=== PATIENT | female | born 1990 | race Caucasian/White ===

== ENCOUNTER 2021-06-01 10:21 | Inpatient (IN) | payer OTHER, SELFPAY ==
[~2021-06-01] VITALS: Ht 157.5 cm; Wt 93.4 kg
[2021-06-01] MEDS ORDERED: OXYTOCIN 10 UNITS/ML VIAL IM SCH (10:50)
[2021-06-01] MEDS ORDERED: PROMETHAZINE 25 MG/ML VIAL IVP PRN (10:50)
[2021-06-01] MEDS ORDERED: CARBOPROST 250 MCG/ML AMP IM PRN (10:50)
[2021-06-01] MEDS ORDERED: METHYLERGONOVINE 0.2 MG/ML AMP IM PRN (10:50)
[2021-06-01] MEDS ORDERED: LACTATED RINGERS 1,000 ML IV SCH (10:50)
[2021-06-01] MEDS ORDERED: NALBUPHINE 10 MG/ML AMP IVP PRN (10:50)
[2021-06-01] MEDS ORDERED: LACTATED RINGERS 500 ML IV ONE (10:50)
[2021-06-01] MEDS ORDERED: LACTATED RINGERS 500 ML IV SCH (11:07)
[2021-06-01 11:23] LABS: BASOPHILS # (AUTO) 0.1 K/uL (0.00-0.22); BASOPHILS % (AUTO) 0.7 % (0.0-2.0); EOSINOPHILS % (AUTO) 0.3 % (0.0-4.0); HEMATOCRIT 40.4 % (36-48); HEMOGLOBIN 13.5 g/dL (12.0-16.0); MEAN CORPUSCULAR HEMOGLOBIN 30 pg (27-31); MEAN CORPUSCULAR HGB CONC 33 g/dL (33-37); MEAN CORPUSCULAR VOLUME 90.2 fL (80-94); MONOCYTES # (AUTO) 0.4 K/uL (0.8-1.0); NEUTROPHILS # (AUTO) 6.3 K/uL (1.8-7.7); PLATELET COUNT (AUTO) 243 K/uL (140-450); RED BLOOD CELL COUNT(AUTO) 4.48 MIL/uL (4.20-5.40); RED CELL DISTRIBUTION WIDTH 13.8 % (11.6-13.7); WHITE BLOOD COUNT (AUTO) 8.7 K/uL (4.8-10.8)
[2021-06-01 11:24] VITALS: BP 122/82
[2021-06-01 11:27] LABS: BILIRUBIN,URINE NEGATIVE (NEGATIVE); BLOOD, URINE NEGATIVE (NEGATIVE); COLOR,URINE YELLOW (YELLOW); LEUKOCYTE ESTERASE ,URINE 2+ (NEGATIVE); NITRITE, URINE NEGATIVE (NEGATIVE); UGLUCOSE NEGATIVE (NEGATIVE)
[2021-06-01 11:40] LABS: APPEARANCE,URINE HAZY (CLEAR)
[2021-06-01 11:41] LABS: RBC,URINE 0-5 /HPF (0-5)
[2021-06-01 11:42] LABS: ALBUMIN 2.6 g/dL (3.4-5.0); CARBON DIOXIDE 24.1 mmol/L (21-32); CREATININE 0.5 mg/dL (0.6-1.3); POTASSIUM 4.1 mmol/L (3.5-5.1); TOTAL BILIRUBIN 0.2 mg/dL (0.0-1.0)
[2021-06-01] MEDS ORDERED: ROPIVACAINE 0.2%/NS PREMIX 200 ML EPI ONE (12:16)
[2021-06-01] MEDS ORDERED: ROPIVACAINE 0.2%/NS PREMIX 100 ML EPI SCH (13:26)
[2021-06-01] MEDS ORDERED: LIDOCAINE 1% 500 MG/50 ML VIAL ONE (13:29)
[2021-06-01] MEDS ORDERED: OXYTOCIN 20 UNITS/LR PREMIX 1,000 ML IV ONE (13:34)
--- NOTE | 2021-06-01 14:22 | NUR ---
PATIENT HAS BEEN SCREENED AND CATEGORIZED LOW NUTRITION RISK. PATIENT WILL BE SEEN WITHIN 7 DAYS OF ADMISSION. 06/07/[address]
[2021-06-01] MEDS ORDERED: OXYTOCIN 20 UNITS in LACTATED RINGERS 1,000 ML IV SCH (20:30)
[2021-06-01] MEDS ORDERED: MEASLES, MUMPS, AND RUBELLA 1 VIAL SQVAC ONE (20:30)
[2021-06-02] MEDS: IBUPROFEN 600 MG TAB PO PRN ×2 (02:19→19:48)
[2021-06-02] MEDS: DOCUSATE SODIUM 100 MG GELCAP PO PRN (08:54)
[2021-06-02] MEDS: bisacodyL 5 MG TABEC PO PRN (08:54)
[2021-06-02] MEDS: ACETAMINOPHEN 325 MG TAB PO PRN (08:55)
[2021-06-02 09:13] LABS: BASOPHILS # (AUTO) 0.1 K/uL (0.00-0.22); BASOPHILS % (AUTO) 0.5 % (0.0-2.0); EOSINOPHILS % (AUTO) 0.2 % (0.0-4.0); HEMOGLOBIN 12.8 g/dL (12.0-16.0); LYMPHOCYTES # (AUTO) 2.6 K/uL (2.5-16.5); LYMPHOCYTES % (AUTO) 25.8 % (20.5-51.1); MEAN CORPUSCULAR HEMOGLOBIN 30 pg (27-31); MEAN CORPUSCULAR HGB CONC 34 g/dL (33-37); MEAN CORPUSCULAR VOLUME 90.7 fL (80-94); MONOCYTES # (AUTO) 0.5 K/uL (0.8-1.0); MONOCYTES % (AUTO) 4.8 % (1.7-9.3); NEUTROPHILS # (AUTO) 6.9 K/uL (1.8-7.7); NEUTROPHILS % (AUTO) 68.7 % (42.2-75.2); PLATELET COUNT (AUTO) 253 K/uL (140-450); RED BLOOD CELL COUNT(AUTO) 4.19 MIL/uL (4.20-5.40); RED CELL DISTRIBUTION WIDTH 14.1 % (11.6-13.7); WHITE BLOOD COUNT (AUTO) 10.1 K/uL (4.8-10.8)
[2021-06-03] MEDS: IBUPROFEN 600 MG TAB PO PRN (04:07)
[2021-06-03] MEDS: bisacodyL 5 MG TABEC PO PRN (08:11)
[2021-06-03] MEDS: ACETAMINOPHEN 325 MG TAB PO PRN (08:11)
[2021-06-03] MEDS: DOCUSATE SODIUM 100 MG GELCAP PO PRN (08:11)
== END 2021-06-03 14:00 | disposition home or self-care (01) | DRG 560 ==
LOC: MLD 10:21 → OBSVTOIN 11:28 → MFCC 15:50
PROVIDERS: ADMIT Obstetrics & Gynecology; ATTEND Obstetrics & Gynecology
PROC: 10E0XZZ Delivery of Products of Conception, External Approach (ICD-10-PCS; principal; 2021-06-02)
PROC: 3E0R3BZ Introduction of Anesthetic Agent into Spinal Canal, Percutaneous Approach (ICD-10-PCS; 2021-06-02)
PROC: 00HU33Z Insertion of Infusion Device into Spinal Canal, Percutaneous Approach (ICD-10-PCS; 2021-06-02)
DX: O80 Encounter for full-term uncomplicated delivery (principal); Z37.0 Single live birth; Z20.822 Contact with and (suspected) exposure to COVID-19; Z3A.39 39 weeks gestation of pregnancy
CPT/HCPCS: 36415; 51702; 59409; 76815; 80053; 81001; 85025; 86592; 86886; 86900; 86901; 87086; G0378; J2001; J2300; J2590; J2795; J7120; Q0092